=== PATIENT | female | born 1940 | race Caucasian/White ===

== ENCOUNTER → 2017-10-29 10:52 | Outpatient (CLI) | payer OTHER, SELFPAY ==
--- NOTE | 2017-10-29 | DI.MG.S_ITS ---
BILATERAL DIGITAL SCREENING MAMMOGRAM 3D/2D WITH CAD: 10/29/2017 CLINICAL: Routine screening. Family history of breast cancer. Comparison is made to exams dated: 10/19/2016 mammogram, 09/06/2015 mammogram, and 09/03/2014 mammogram - [facility]. There are scattered fibroglandular elements in both breasts. Current study was also evaluated with a Computer Aided Detection (CAD) system. No significant masses, calcifications, or other findings are seen in either breast. There has been no significant interval change. IMPRESSION: NEGATIVE There is no mammographic evidence of malignancy. A 1 year screening mammogram is recommended. This exam was interpreted at Station ID: [id number]. NOTE: For mammograms, a report in lay terms will be sent to the patient. Approximately 15% of breast malignancies will not be visualized mammographically. In the management of a palpable breast mass, a negative mammogram must not discourage biopsy of a clinically suspicious lesion. Electronically Signed By: Liam lai/gabriel:10/29/2017 15:04:16 letter sent: Normal Exam ACR BI-RADS Category 1: Negative 3341F
== END ==
PROVIDERS: Family Provider Physician Assistant; PCP Physician Assistant; Visit Provider Physician Assistant
DX: Z12.31 Encounter for screening mammogram for malignant neoplasm of breast (principal); Z80.3 Family history of malignant neoplasm of breast
CPT/HCPCS: 77063; 77067

== ENCOUNTER → 2017-11-14 19:30 | Outpatient (REF) | payer OTHER, SELFPAY | LOC: LAB 19:30 | PROVIDERS: Family Provider Physician Assistant; PCP Physician Assistant; Visit Provider Physician Assistant | DX: T81.89XA Other complications of procedures, not elsewhere classified, initial encounter (principal) | CPT/HCPCS: 87070; 87075; 87077; 87147; 87186; 87205 ==

== ENCOUNTER 2018-04-04 06:25 | Day surgery (SDC) | payer OTHER, SELFPAY ==
--- NOTE | 2018-04-04 | PATH_ITS ---
[facility] Accession Number: [id number] . 01 Material submitted: . CECAL POLYP . 02 Diagnosis: Cecal Polyp: Vegetable material. No tissue identified. MRV/04/08/2018 . 02 Electronically signed: . Cooper Valle MD, PhD, Pathologist NPI- [id number] . 01 Gross description: . CECAL POLYP: Received in formalin is 1 fragment(s) of de leon, soft tissue measuring 0.4 x 0.4 x 0.2 cm submitted entirely in 1 cassette(s) /CKI /CKI . 02 Pathologist provided ICD-10: K63.5 . 02 CPT . 999718 Specimen Comment: A duplicate report has been generated due to demographic updates. Performed at: 01 [facility] [address] [id number] MD Richard Lema MD Phone: [phone] Performed at: 02 [facility] [address] [place], [place] [id number] MD Carlene Ramos MD Phone: [phone]
[2018-04-04 07:32] VITALS: BP 122/80; PULSE 64; RESP 15; TEMP 36.6; O2SAT 96; BMI 29.8
--- NOTE | 2018-04-04 08:45 | PM.HP.1 ---
History of Present Illness Date Patient Seen: 04/04/18 Chief complaint: [id number] Narrative: 77 y/o female here for colon cancer screening colonoscopy. last colonoscopy 5 years ago, benign polyp removed. no complaints of abdominal pain, bloating, chronic conspitation, change in caliber of stools, melena, blood per rectum. Patient History Family & Social History Family History: Reviewed 04/04/18 by Goldy Martins MD Social History: household members spouse Meds Home Medications Medication Instructions Recorded Confirmed Type ASPIRIN (Aspir-Low) 81 mg PO QDAY #0 12/20/11 History benazepril 10 mg PO QDAY #0 12/20/11 History celecoxib [Celebrex] 200 mg PO QDAY #0 12/20/11 History levothyroxine [Synthroid] 25 mcg PO QAM #0 12/20/11 History loratadine [Claritin] 10 mg PO PRN #0 12/20/11 History VITAMIN D (Vitamin D3) 4,000 PO QDAY #0 11/29/16 History fexofenadine [Gabrielle Allergy] 180 mg PO Q24H 04/04/18 04/04/18 History Allergies Allergy/AdvReac Type Severity Reaction Status Date / Time iodine Allergy Intermediate HIVES Unverified 09/05/17 11:54 CONTRAST DYE latex Allergy Mild RASH Unverified 09/05/17 11:54 codeine AdvReac Mild N/V Unverified 09/05/17 11:54 Review of Systems Review of Systems All systems reviewed & are unremarkable except as noted in HPI and below Exam Vital Signs (past 8 hours): - 04/04/18 07:32 Temperature 98 F Pulse Rate 64 Respiratory Rate 15 Blood Pressure 122/80 Pulse Oximetry 96 Oxygen Delivery Method Room Air Const General: cooperative, healthy appearing and comfortable [facility] Head: normal to inspection, normocephalic and atraumatic Eyes Sclera: sclerae normal Neck Neck: supple Chest Chest: normal inspection of the chest Resp Effort & Inspection: normal respiratory effort Cardio Rhythm: regular rhythm GI Inspection: normal to inspection Palpation: soft Skin General: no rashes or lesions noted Neuro General: alert, awake and moves all extremities Extrem General: normal to inspection Psych Appearance: grossly normal and well kempt Mood: congruent mood Affect: normal affect Attitude: cooperative Thought Process: normal Thought Content: normal Judgment: judgment good Assessment & Plan Plan: Assessment/Plan Narrative: Colon cancer screening colonoscopy. hx of polyp. procedure, benefits, risks including bleeding and perforation reviewed with patient. Time Spent With Patient Time with patient: 25 - 35 minutes
--- NOTE | 2018-04-04 08:49 | P.HP_ITS ---
History of Present Illness Date Patient Seen: 04/04/18 Chief complaint: [id number] Narrative: 77 y/o female here for colon cancer screening colonoscopy. last colonoscopy 5 years ago, benign polyp removed. no complaints of abdominal pain , bloating, chronic conspitation, change in caliber of stools, melena, blood per rectum. Patient History Family & Social History Family History: Reviewed 04/04/18 by Goldy Martins MD Social History: household members spouse Meds Home Medications Medication Instructions Recorded Confirmed Type ASPIRIN (Aspir-Low) 81 mg PO QDAY #0 12/20/11 History benazepril 10 mg PO QDAY #0 12/20/11 History celecoxib [Celebrex] 200 mg PO QDAY #0 12/20/11 History levothyroxine [Synthroid] 25 mcg PO QAM #0 12/20/11 History loratadine [Claritin] 10 mg PO PRN #0 12/20/11 History VITAMIN D (Vitamin D3) 4,000 PO QDAY #0 11/29/16 History fexofenadine [Gabrielle Allergy] 180 mg PO Q24H 04/04/18 04/04/18 History Allergies Allergy/AdvReac Type Severity Reaction Status Date / Time iodine Allergy Intermediate HIVES Unverified 09/05/17 11:54 CONTRAST DYE latex Allergy Mild RASH Unverified 09/05/17 11:54 codeine AdvReac Mild N/V Unverified 09/05/17 11:54 Review of Systems Review of Systems All systems reviewed & are unremarkable except as noted in HPI and below Exam Vital Signs (past 8 hours): - 04/04/18 07:32 Temperature 98 F Pulse Rate 64 Respiratory Rate 15 Blood Pressure 122/80 Pulse Oximetry 96 Oxygen Delivery Method Room Air Const General: cooperative, healthy appearing and comfortable [facility] Head: normal to inspection, normocephalic and atraumatic Eyes Sclera: sclerae normal Neck Neck: supple Chest Chest: normal inspection of the chest Resp Effort & Inspection: normal respiratory effort Cardio Rhythm: regular rhythm GI Inspection: normal to inspection Palpation: soft Skin General: no rashes or lesions noted Neuro General: alert, awake and moves all extremities Extrem General: normal to inspection Psych Appearance: grossly normal and well kempt Mood: congruent mood Affect: normal affect Attitude: cooperative Thought Process: normal Thought Content: normal Judgment: judgment good Assessment & Plan Plan: Assessment/Plan Narrative: Colon cancer screening colonoscopy. hx of polyp. procedure, benefits, risks including bleeding and perforation reviewed with patient. Time Spent With Patient Time with patient: 25 - 35 minutes
[2018-04-04] MEDS: diphenhydrAMINE 50 MG/ML VIAL IV (09:07)
[2018-04-04] MEDS: SODIUM CHLORIDE 0.9% 1,000 ML 1000 ML IV (09:52)
[2018-04-04] MEDS: MIDAZOLAM 5 MG/5 ML VIAL IV (09:54)
[2018-04-04] MEDS: fentaNYL 250 MCG/5 ML INJ IV (09:55)
--- NOTE | 2018-04-04 10:07 | PM.OP.ENDO ---
Operative Date/Time/Diagnoses Date of procedure: 04/04/18 Pre-op diagnosis: colon cancer screening history of colon polyps Post-op diagnosis: same Procedure & Clinicians Indications: Interval colon cancer screening Surgeon: Goldy Martins Procedure Notes SCOAP/Timeout: done Procedure in detail: Patient taken from preoperative area to endoscopy suite with adequate iv access on guerny. Timeout was performed. IV sedation sedation was titrated throughout the case while patient was continuously monitored. Inspection of anal orifice revealed few scattered skin tags. Digital exam failed to palpate any lesions. A well lubricated Fuji colonoscope was gently introduced through the anus and advanced to the cecum using the dither-torque technique. The colon was very tortuous throughout the majority of its length, requiring incremental increased sedation and repositioning of patient as well as external splinting by pediatric medical assistant. Confirmation of reaching the cecum was acheived by identifying the appendiceal orifice and ileocecal valve. A raised polyp was identified at the appendiceal orifice. It was removed using snare technique with application of cautery. Polyp was removed with suction, but not found in trap despite several flushings. The right colon was inspected several times and the removed polyp could not be found. Scattered few diverticuli of the sigmoid colon were identified. Retroflexion of the endoscope in lower third of rectum revealed grade 2 non-bleeding internal hemorrhoids. Residual insufflation was evacuated. Patient tolerated procedure well and was transferred to PACU in stable condition. Scope withdrawal time: 29 Sedation minutes: 60 Findings: diverticulosis (scattered few in sigmoid colon) and internal hemorrhoids (grade 2) Specimen(s): none sent (cecal polyp) Complications: none Recommendations: Colonscopy in 3 years Disposition: same day surgery
[2018-04-04 10:11] VITALS: BP 118/78; PULSE 83; RESP 15; TEMP 36.6; O2SAT 94
[2018-04-04] MEDS: CALCIUM CARBONATE 500 MG TAB 1000 MG PO (10:50)
[2018-04-04 11:25] VITALS: BP 122/86; PULSE 72; RESP 16; TEMP 36.6; O2SAT 99
== END 2018-04-04 11:33 | disposition home or self-care (01) ==
PROVIDERS: Family Provider Physician Assistant; PCP Physician Assistant; Visit Provider Surgery
PROC: 0DJD8ZZ Inspection of Lower Intestinal Tract, Via Natural or Artificial Opening Endoscopic (ICD-10-PCS; CPT 45378; principal; 2018-04-04 07:45)
DX: Z86.010 Personal history of colon polyps (principal); K57.30 Diverticulosis of large intestine without perforation or abscess without bleeding; K64.1 Second degree hemorrhoids; K63.5 Polyp of colon
CPT/HCPCS: 45385; J1200; J2250; J3010

== ENCOUNTER → 2018-08-26 10:56 | Outpatient (CLI) | payer OTHER, SELFPAY ==
--- NOTE | 2018-08-26 10:59 | DI.US.S_ITS ---
PROCEDURE: US EXTREMITY NONVASC UPPER LT INDICATIONS: LOCALIZED SWELLING TECHNIQUE: Real-time scanning was performed of the left upper arm, with image documentation. COMPARISON: None. FINDINGS: Multiple whyte scale and color Doppler images of the left upper arm were acquired over the patient directed area of palpable concern. Within the superficial subcutaneous soft tissues, there is an isoechoic-hyperechoic circumscribed mass that is wider than tall and subdermal in location. It measures 2.7 x 0.8 x 2.2 cm in size no internal vascularity. No evidence for invasion into the underlying fascia of the upper arm musculature. IMPRESSION: Circumscribed, wider than tall isoechoic-hyperechoic containing soft tissue mass in the left upper arm correlating with palpable area of patient concern. 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 However, tissue sampling is required for definitive diagnosis. If there is persistent pain or enlargement in size, consider further characterization with contrast-enhanced MRI. Dictated by: Carlos A Shore M.D. on 08/26/2018 at 16:01 Approved by: Carlos A Shore M.D. on 08/26/2018 at 16:05
[2018-08-26 12:08] LABS: Add Manual Diff / Slide Review NO; Basophils Absolute Auto 100 /uL (0-100); Basophils Percent Auto 0.7 % (0-2); Eosinophils Absolute Auto 100 /uL (0-450); Eosinophils Percent Auto 1.2 % (2-4); Hematocrit 43.3 % (36-46); Hemoglobin 14.1 g/dL (12.0-16.0); Lymphocytes Absolute Auto 1800 /uL (1100-4500); Lymphocytes Percent Auto 20.9 % (25-40); Mean Corpuscular HGB Conc 32.6 % (30-36); Mean Corpuscular Hemoglobin 30.8 PG (26-34); Mean Corpuscular Volume 94.5 fL (80-100); Monocytes Absolute Auto 400 /uL (0-900); Monocytes Percent Auto 5.1 % (3-14); Neutrophils Absolute Auto 6400 /uL (1500-7000); Neutrophils Percent Auto 72.1 % (50-75); Platelet Count 342 X10^3/uL (150-400); Red Blood Cell Count 4.59 X10^6/uL (4.0-5.2); Red Cell Distribution Width 13.7 % (11.6-14.8); White Blood Cell Count 8.8 X10^3/uL (4.5-11.0)
[2018-08-26 12:39] LABS: Alanine Aminotransferase 40 IU/L (9-52); Albumin 4.6 g/dL (3.5-5.0); Albumin Globulin Ratio 1.7 (1.0-2.8); Alkaline Phosphatase 85 U/L (38-126); Aspartate Aminotransferase 49 IU/L (14-36); Bilirubin Total 0.5 mg/dL (0.2-1.3); Blood Urea Nitrogen 28 mg/dL (7-17); Calcium 9.7 mg/dL (8.4-10.2); Carbon Dioxide 28 mmol/L (22-32); Chloride 100 mmol/L (98-107); Cholesterol 194 mg/dL (140-199); Estimated Glomerular Filt Rate > 60.0 mL/min (>60); Globulin 2.7 g/dL (1.7-4.1); Glucose 82 mg/dL (80-110); HDL Cholesterol 68 mg/dL (40-60); HEMOLYSIS 18 (0-50); LDL Cholesterol Calculated 108 mg/dL (<100); Potassium 4.8 mmol/L (3.4-5.1); Sodium 137 mmol/L (137-145); Total Protein 7.3 g/dL (6.3-8.2); Triglycerides 92 mg/dL (35-150)
== END ==
PROVIDERS: Family Provider Physician Assistant; PCP Physician Assistant; Visit Provider Physician Assistant
DX: R22.32 Localized swelling, mass and lump, left upper limb (principal); C69.32 Malignant neoplasm of left choroid; E78.2 Mixed hyperlipidemia
CPT/HCPCS: 36415; 76882; 80053; 80061; 85025

== ENCOUNTER → 2018-09-05 10:22 | Outpatient (CLI) | payer OTHER, SELFPAY ==
--- NOTE | 2018-09-05 10:29 | DI.CT.S_ITS ---
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 5 mm coronal and sagittal reformats were performed, with additional 7 mm coronal MIP reformats through the lungs. For radiation dose reduction, the following was used: automated exposure control, adjustment of mA and/or kV according to patient size. COMPARISON: None. FINDINGS: Image quality: Excellent. CHEST: Lungs and pleura: No acute airspace opacities. No pleural effusions or pneumothorax. Central and peripheral airways appear patent and normal in caliber. Mediastinum: Heart size is normal. No pericardial effusion. No mediastinal or hilar adenopathy by size criteria. Small calcified lymph node in the precarinal space is seen. Thoracic aorta and central pulmonary arteries are normal in size. Esophagus is normal in caliber. No hiatal hernia. Chest wall: No axillary or supraclavicular adenopathy by size criteria. Thyroid gland is within normal limits. ABDOMEN: Solid organs: Liver is normal in size and enhancement. Calcified stones are noted in dependent portion of gallbladder lumen. No gross gallbladder wall thickening or pericholecystic fluid. There is mild left intrahepatic biliary ductal dilatation. Common bile duct is normal in size. Pancreas enhances normally. Spleen is normal in size and enhancement. No adrenal nodules. Numerous cysts are seen scattered throughout bilateral renal parenchyma. No renal stones or hydronephrosis. Peritoneum and bowel: Bowel loops demonstrate normal wall thickness and caliber. No free fluid or air. Nodes and vessels: No retroperitoneal or mesenteric adenopathy by size criteria. Subcentimeter lymph nodes are seen in the left para-aortic space measures up to 7 mm in short axis diameter. Aorta and inferior vena cava are normal in size. Miscellaneous: No ventral hernias. PELVIS: Genitourinary: Bladder wall thickness is normal. Miscellaneous: No inguinal adenopathy. Left inguinal hernia containing fat only is noted. Benign-appearing sclerotic focus involving anterior aspect of L1 vertebral body is seen, and may represent focal bone island. Grade 1 anterolisthesis of L5 on S1 is noted. Bones: No suspicious bony lesions. No vertebral body compression fractures. IMPRESSION: 1. No evidence of metastatic disease in chest, abdomen or pelvis. No lymphadenopathy. 2. Cholelithiasis. Mild left intrahepatic biliary ductal dilatation. Normal appearing common hepatic duct and common bile duct. No CT evidence of acute cholecystitis. 3. Calcified lymph node in the precarinal space. Small calcified granuloma in the spleen. Findings likely represent prior granulomatous disease. Dictated by: Jones Toledo M.D. on 09/05/2018 at 12:37 Approved by: Jones Toledo M.D. on 09/05/2018 at 12:56
== END ==
PROVIDERS: Family Provider Physician Assistant; PCP Physician Assistant; Visit Provider Physician Assistant
DX: C69.32 Malignant neoplasm of left choroid (principal); K80.20 Calculus of gallbladder without cholecystitis without obstruction; K40.90 Unilateral inguinal hernia, without obstruction or gangrene, not specified as recurrent; M43.17 Spondylolisthesis, lumbosacral region
CPT/HCPCS: 71260; 74177; Q9967

== ENCOUNTER → 2018-09-23 10:22 | Outpatient (CLI) | payer OTHER, SELFPAY ==
--- NOTE | 2018-09-23 | DI.US.S_ITS ---
PROCEDURE: US PERIPH VENOUS LOW EXTREM LT INDICATIONS: PALPABLE 'CORD' LEFT UPPER MEDIAL CALF TECHNIQUE: Real-time imaging, as well as color and pulse Doppler interrogation, were performed of the lower extremity deep veins from the inguinal ligament to the popliteal fossa. COMPARISON: None. FINDINGS: The common femoral, femoral and popliteal veins are normally compressible, and free of intraluminal thrombus. Color and pulse Doppler demonstrate normal phasic intraluminal flow. There is normal augmentation response to distal compression maneuver. There is, however, a thrombosed superficial vein over the left upper medial calf in the area of current palpable abnormality in the superficial soft tissues. IMPRESSION: No DVT found that there is a superficial vein (presumed varicosity) thrombus at the upper medial calf in the area of current clinical concern. Dictated by: Rory Patiño M.D. on 09/23/2018 at 11:16 Approved by: Rory Patiño M.D. on 09/23/2018 at 11:17
== END ==
PROVIDERS: Family Provider Physician Assistant; PCP Physician Assistant; Visit Provider Student in an Organized Health Care Education/Training Program
DX: M79.662 Pain in left lower leg (principal)
CPT/HCPCS: 93971

== ENCOUNTER → 2018-11-20 09:08 | Outpatient (CLI) | payer OTHER, SELFPAY ==
--- NOTE | 2018-11-20 | DI.MG.S_ITS ---
BILATERAL DIGITAL SCREENING MAMMOGRAM 3D/2D WITH CAD: 11/20/2018 CLINICAL: Routine screening. Family history of breast cancer. Comparison is made to exams dated: 10/29/2017 mammogram, 10/19/2016 mammogram, and 09/06/2015 mammogram - [facility]. There are scattered fibroglandular elements in both breasts. Current study was also evaluated with a Computer Aided Detection (CAD) system. There are benign post operative findings in the left breast. No significant masses, calcifications, or other findings are seen in either breast. There has been no significant interval change. IMPRESSION: There is no mammographic evidence of malignancy. A 1 year screening mammogram is recommended. This exam was interpreted at Station ID: [id number]. NOTE: For mammograms, a report in lay terms will be sent to the patient. Approximately 15% of breast malignancies will not be visualized mammographically. In the management of a palpable breast mass, a negative mammogram must not discourage biopsy of a clinically suspicious lesion. Electronically Signed By: Autumn roche/gabriel:11/20/2018 15:23:10 letter sent: Normal Exam ACR BI-RADS Category 2: Benign Finding(s) 3342F
== END ==
PROVIDERS: Family Provider Physician Assistant; PCP Physician Assistant; Visit Provider Physician Assistant
DX: Z12.31 Encounter for screening mammogram for malignant neoplasm of breast (principal); Z80.3 Family history of malignant neoplasm of breast
CPT/HCPCS: 77063; 77067

== ENCOUNTER → 2019-07-31 14:23 | Outpatient (ROUT) | payer OTHER, SELFPAY ==
[2019-07-31 14:48] LABS: Add Manual Diff / Slide Review NO; Basophils Absolute Auto 100 /uL (0-100); Basophils Percent Auto 1.2 % (0-2); Eosinophils Absolute Auto 100 /uL (0-450); Eosinophils Percent Auto 2.4 % (2-4); Hematocrit 40.5 % (36-46); Hemoglobin 13.7 g/dL (12.0-16.0); Lymphocytes Absolute Auto 1500 /uL (1100-4500); Lymphocytes Percent Auto 25.9 % (25-40); Mean Corpuscular HGB Conc 33.7 % (30-36); Mean Corpuscular Hemoglobin 31.2 PG (26-34); Mean Corpuscular Volume 92.7 fL (80-100); Monocytes Absolute Auto 400 /uL (0-900); Monocytes Percent Auto 7.2 % (3-14); Neutrophils Absolute Auto 3600 /uL (1500-7000); Neutrophils Percent Auto 63.3 % (50-75); Platelet Count 364 X10^3/uL (150-400); Red Blood Cell Count 4.37 X10^6/uL (4.0-5.2); Red Cell Distribution Width 14.5 % (11.6-14.8); White Blood Cell Count 5.7 X10^3/uL (4.5-11.0)
[2019-07-31 16:20] LABS: Alanine Aminotransferase 27 IU/L (<35); Albumin 4.5 g/dL (3.5-5.0); Albumin Globulin Ratio 1.8 (1.0-2.8); Alkaline Phosphatase 79 U/L (38-126); Aspartate Aminotransferase 41 IU/L (14-36); BUN Creatinine Ratio 31.4 (6-22); Bilirubin Total 0.5 mg/dL (0.2-1.3); Blood Urea Nitrogen 22 mg/dL (7-17); Calcium 9.8 mg/dL (8.4-10.2); Carbon Dioxide 27 mmol/L (22-32); Chloride 104 mmol/L (98-107); Cholesterol 191 mg/dL (140-199); Estimated Glomerular Filt Rate > 60.0 mL/min (>60); Globulin 2.5 g/dL (1.7-4.1); Glucose 87 mg/dL (80-110); HDL Cholesterol 66 mg/dL (40-60); HEMOLYSIS 23 (0-50); LDL Cholesterol Calculated 114 mg/dL (<100); Potassium 4.9 mmol/L (3.4-5.1); Sodium 140 mmol/L (137-145); Triglycerides 56 mg/dL (35-150)
[2019-07-31 16:42] LABS: TSH w/ Reflex to FT4 3.43 uIU/mL (0.47-4.68)
== END ==
PROVIDERS: Family Provider Physician Assistant; PCP Physician Assistant; Visit Provider Physician Assistant
DX: E03.9 Hypothyroidism, unspecified (principal); I10 Essential (primary) hypertension; E78.2 Mixed hyperlipidemia
CPT/HCPCS: 80053; 80061; 84443; 85025

== ENCOUNTER → 2019-11-26 08:16 | Outpatient (CLI) | payer OTHER, SELFPAY ==
--- NOTE | 2019-11-26 | DI.MG.S_ITS ---
BILATERAL DIGITAL SCREENING MAMMOGRAM 3D/2D WITH CAD: 11/26/2019 CLINICAL: Routine screening. Family history of breast cancer. Comparison is made to exams dated: 11/20/2018 mammogram, 10/29/2017 mammogram, and 10/19/2016 mammogram - [facility]. There are scattered fibroglandular elements in both breasts. Current study was also evaluated with a Computer Aided Detection (CAD) system. There are benign post operative findings in the left breast. No significant masses, calcifications, or other findings are seen in either breast. There has been no significant interval change. IMPRESSION: There is no mammographic evidence of malignancy. A 1 year screening mammogram is recommended. This exam was interpreted at Station ID: [id number]. NOTE: For mammograms, a report in lay terms will be sent to the patient. Approximately 15% of breast malignancies will not be visualized mammographically. In the management of a palpable breast mass, a negative mammogram must not discourage biopsy of a clinically suspicious lesion. Electronically Signed By: Richard milton/gabriel:11/26/2019 08:47:15 letter sent: Normal Exam ACR BI-RADS Category 2: Benign Finding(s) 3342F
== END ==
PROVIDERS: Family Provider Physician Assistant; PCP Physician Assistant; Referring Provider Physician Assistant; Visit Provider Physician Assistant
DX: Z12.31 Encounter for screening mammogram for malignant neoplasm of breast (principal); Z80.3 Family history of malignant neoplasm of breast
CPT/HCPCS: 77063; 77067

== ENCOUNTER → 2020-11-26 10:07 | Outpatient (CLI) | payer MEDICARE, SELFPAY ==
--- NOTE | 2020-11-26 | DI.MG.S_ITS ---
BILATERAL DIGITAL SCREENING MAMMOGRAM 3D/2D WITH CAD: 11/26/2020 CLINICAL: Routine screening. Family history of breast cancer. Comparison is made to exams dated: 11/26/2019 mammogram, 11/20/2018 mammogram, and 10/29/2017 mammogram - [facility]. There are scattered fibroglandular elements in both breasts. Current study was also evaluated with a Computer Aided Detection (CAD) system. There are benign calcifications in both breasts. There also are benign post operative findings in the left breast. No significant masses, calcifications, or other findings are seen in either breast. There has been no significant interval change. IMPRESSION: BENIGN There is no mammographic evidence of malignancy. A 1 year screening mammogram is recommended. This exam was interpreted at Station ID: [id number]. NOTE: For mammograms, a report in lay terms will be sent to the patient. Approximately 15% of breast malignancies will not be visualized mammographically. In the management of a palpable breast mass, a negative mammogram must not discourage biopsy of a clinically suspicious lesion. Electronically Signed By: Richard milton/gabriel:11/26/2020 10:41:57 letter sent: Normal Exam ACR BI-RADS Category 2: Benign Finding(s) 3342F
== END ==
PROVIDERS: Family Provider Physician Assistant; PCP Physician Assistant; Referring Provider Physician Assistant; Visit Provider Physician Assistant
DX: Z12.31 Encounter for screening mammogram for malignant neoplasm of breast (principal); Z80.3 Family history of malignant neoplasm of breast
CPT/HCPCS: 77063; 77067

== ENCOUNTER → 2021-01-19 09:04 | Outpatient (CLI) | payer MEDICARE, SELFPAY ==
[2021-01-19 09:36] LABS: Add Manual Diff / Slide Review NO; Basophils Absolute Auto 100 /uL (0-100); Eosinophils Absolute Auto 200 /uL (0-450); Hematocrit 41.6 % (36-46); Hemoglobin 13.6 g/dL (12.0-16.0); Lymphocytes Absolute Auto 1400 /uL (1100-4500); Lymphocytes Percent Auto 24.1 % (25-40); Mean Corpuscular HGB Conc 32.6 % (30-36); Mean Corpuscular Hemoglobin 30.8 PG (26-34); Mean Corpuscular Volume 94.6 fL (80-100); Monocytes Absolute Auto 500 /uL (0-900); Monocytes Percent Auto 7.6 % (3-14); Neutrophils Absolute Auto 3800 /uL (1500-7000); Neutrophils Percent Auto 63.3 % (50-75); Platelet Count 410 X10^3/uL (150-400); Red Cell Distribution Width 14.3 % (11.6-14.8)
[2021-01-19 10:02] LABS: Alanine Aminotransferase 27 IU/L (<35); Albumin 4.2 g/dL (3.5-5.0); Albumin Globulin Ratio 1.8 (1.0-2.8); Alkaline Phosphatase 77 U/L (38-126); Aspartate Aminotransferase 36 IU/L (14-36); BUN Creatinine Ratio 30.1 (6-22); Bilirubin Total 0.4 mg/dL (0.2-1.3); Blood Urea Nitrogen 22 mg/dL (7-17); Calcium 9.7 mg/dL (8.4-10.2); Carbon Dioxide 29 mmol/L (22-32); Chloride 104 mmol/L (98-107); Cholesterol 195 mg/dL (140-199); Estimated Glomerular Filt Rate > 60.0 mL/min (>60); Globulin 2.4 g/dL (1.7-4.1); Glucose 58 mg/dL (80-110); HDL Cholesterol 76 mg/dL (40-60); HEMOLYSIS < 15 (0-50); LDL Cholesterol Calculated 102 mg/dL (<100); Potassium 4.5 mmol/L (3.4-5.1); Sodium 137 mmol/L (137-145); Total Protein 6.6 g/dL (6.3-8.2); Triglycerides 87 mg/dL (35-150)
[2021-01-19 10:26] LABS: TSH w/ Reflex to FT4 4.06 uIU/mL (0.47-4.68)
== END ==
PROVIDERS: Family Provider Physician Assistant; PCP Physician Assistant; Referring Provider Physician Assistant; Visit Provider Physician Assistant
DX: I10 Essential (primary) hypertension (principal); E03.9 Hypothyroidism, unspecified; E78.2 Mixed hyperlipidemia
CPT/HCPCS: 36415; 80053; 80061; 84443; 85025

== ENCOUNTER → 2021-03-02 14:16 | Outpatient (CLI) | payer MEDICARE, SELFPAY ==
--- NOTE | 2021-03-02 | DI.RAD.S_ITS ---
PROCEDURE: XR DEXA AXIAL SKELETON INDICATIONS: Encounter for screening for osteoporosis COMPARISON: None. FINDINGS: This blank DEXA report has been sent in error by the PACS system. The correct and complete report will be forthcoming in 1-2 days. Thank you for your patience and understanding. Dictated by: Ally Mead MD, PhD on 03/03/2021 at 10:04 Approved by: Ally Mead MD, PhD on 03/03/2021 at 10:04
== END ==
PROVIDERS: Family Provider Physician Assistant; PCP Physician Assistant; Referring Provider Physician Assistant; Visit Provider Physician Assistant
DX: Z13.820 Encounter for screening for osteoporosis (principal); M81.0 Age-related osteoporosis without current pathological fracture; M85.852 Other specified disorders of bone density and structure, left thigh
CPT/HCPCS: 77080

== ENCOUNTER → 2021-05-10 12:14 | Outpatient (CLI) | payer MEDICARE, SELFPAY ==
--- NOTE | 2021-05-10 12:17 | DI.US.S_ITS ---
PROCEDURE: US PERIPH VENOUS LOW EXTREM RT INDICATIONS: R calf pain x1 day, hx Factor 5 and superficial thrombus TECHNIQUE: Real-time imaging, as well as color and pulse Doppler interrogation, were performed of the lower extremity deep veins from the inguinal ligament to the popliteal fossa. COMPARISON: None. FINDINGS: There is incompressibility of the distal femoral vein and the popliteal vein, with intermediate echogenicity on grayscale images and lack of color flow, consistent with occlusive thrombus. Findings extend into the right calf veins. The common femoral and proximal femoral veins are normally compressible, and free of intraluminal thrombus. IMPRESSION: Occlusive deep venous thrombus within the distal femoral vein, the popliteal vein, and the calf veins. Concordant preliminary findings were conveyed to the ordering provider, Jolene Carvajal PA-C, by the insurance office manager on 05/10/2021 at 1:00 PM. Dictated by: Cirilo Melton M.D. on 05/10/2021 at 13:35 Approved by: Cirilo Melton M.D. on 05/10/2021 at 13:37
== END ==
PROVIDERS: Family Provider Physician Assistant; PCP Physician Assistant; Referring Provider Physician Assistant; Visit Provider Physician Assistant
DX: I82.411 Acute embolism and thrombosis of right femoral vein (principal); I82.431 Acute embolism and thrombosis of right popliteal vein; I82.4Z1 Acute embolism and thrombosis of unspecified deep veins of right distal lower extremity; M79.661 Pain in right lower leg; D68.51 Activated protein C resistance
CPT/HCPCS: 93971

== ENCOUNTER → 2021-12-13 08:31 | Outpatient (CLI) | payer MEDICARE, SELFPAY ==
--- NOTE | 2021-12-13 | DI.MG.S_ITS ---
BILATERAL DIGITAL SCREENING MAMMOGRAM 3D/2D WITH CAD: 12/13/2021 CLINICAL: Routine screening. Family history of breast cancer. Comparison is made to exams dated: 11/26/2020 mammogram, 11/26/2019 mammogram, 11/20/2018 mammogram, 10/29/2017 mammogram, and 10/19/2016 mammogram - [facility]. There are scattered fibroglandular elements in both breasts. Current study was also evaluated with a Computer Aided Detection (CAD) system. There are benign calcifications in both breasts. There also are benign post operative findings in the left breast. No significant masses, calcifications, or other findings are seen in either breast. There has been no significant interval change. IMPRESSION: BENIGN There is no mammographic evidence of malignancy. A 1 year screening mammogram is recommended. Based on the Tyrer Cuzick model (a risk assessment model) the patient's lifetime risk is 3.5% and her 10 year risk is 0.0%. According to the ACR, ACS, and NCCN guidelines, an annual breast MRI exam along with mammogram is recommended if the patient's lifetime risk is 20% or greater. This exam was interpreted at Station ID: [id number]. NOTE: For mammograms, a report in lay terms will be sent to the patient. Approximately 15% of breast malignancies will not be visualized mammographically. In the management of a palpable breast mass, a negative mammogram must not discourage biopsy of a clinically suspicious lesion. Electronically Signed By: Jerod aldridge/gabriel:12/13/2021 12:38:12 letter sent: Normal Exam ACR BI-RADS Category 2: Benign Finding(s) 3342F
== END ==
PROVIDERS: Family Provider Physician Assistant; PCP Physician Assistant; Referring Provider Physician Assistant; Visit Provider Physician Assistant
DX: Z12.31 Encounter for screening mammogram for malignant neoplasm of breast (principal); Z80.3 Family history of malignant neoplasm of breast
CPT/HCPCS: 77063; 77067

== ENCOUNTER → 2022-05-10 13:41 | Outpatient (CLI) | payer MEDICARE, SELFPAY ==
[2022-05-10 15:39] LABS: Add Manual Diff / Slide Review NO; Basophils Absolute Auto 100 /uL (0-100); Basophils Percent Auto 0.8 % (0-2); Eosinophils Absolute Auto 100 /uL (0-450); Eosinophils Percent Auto 1.9 % (2-4); Hematocrit 41.7 % (36-46); Hemoglobin 13.8 g/dL (12.0-16.0); Lymphocytes Absolute Auto 1600 /uL (1100-4500); Lymphocytes Percent Auto 21.8 % (25-40); Mean Corpuscular HGB Conc 33.2 % (30-36); Mean Corpuscular Hemoglobin 31.1 PG (26-34); Mean Corpuscular Volume 93.7 fL (80-100); Monocytes Absolute Auto 400 /uL (0-900); Monocytes Percent Auto 5.4 % (3-14); Neutrophils Absolute Auto 5200 /uL (1500-7000); Neutrophils Percent Auto 70.1 % (50-75); Platelet Count 468 X10^3/uL (150-400); Red Blood Cell Count 4.45 X10^6/uL (4.0-5.2); Red Cell Distribution Width 14.3 % (11.6-14.8); White Blood Cell Count 7.5 X10^3/uL (4.5-11.0)
[2022-05-10 15:44] LABS: INR 1.2 (0.9-1.3); Prothrombin Time 13.2 SECONDS (10.1-12.7)
[2022-05-10 15:46] LABS: PTT Partial Thromboplastin Tim 36 SECONDS (26-36)
[2022-05-10 16:09] LABS: Alanine Aminotransferase 46 IU/L (<35); Albumin 4.6 g/dL (3.5-5.0); Albumin Globulin Ratio 1.5 (1.0-2.8); Alkaline Phosphatase 99 U/L (38-126); Aspartate Aminotransferase 47 IU/L (14-36); BUN Creatinine Ratio 33.8 (6-22); Bilirubin Total 0.4 mg/dL (0.2-1.3); Blood Urea Nitrogen 26 mg/dL (7-17); Calcium 9.3 mg/dL (8.4-10.2); Carbon Dioxide 28 mmol/L (22-32); Chloride 98 mmol/L (98-107); Estimated Glomerular Filt Rate > 60 mL/min (>60); Glucose 88 mg/dL (80-110); HEMOLYSIS < 15 (0-50); Potassium 4.6 mmol/L (3.4-5.1); Sodium 135 mmol/L (137-145); Total Protein 7.6 g/dL (6.3-8.2)
== END ==
PROVIDERS: Family Provider Physician Assistant; PCP Physician Assistant; Referring Provider Nurse Practitioner Adult Health; Visit Provider Nurse Practitioner Adult Health
DX: C69.30 Malignant neoplasm of unspecified choroid (principal)
CPT/HCPCS: 36415; 80053; 85025; 85610; 85730

== ENCOUNTER → 2023-04-10 08:55 | Outpatient (CLI) | payer MEDICARE, SELFPAY ==
[2023-04-10 10:16] LABS: Influenza A - CEPHEID Flu A NEGATIVE (NEGATIVE); Influenza B - CEPHEID Flu B NEGATIVE (NEGATIVE); Respiratory Syncytial Virus Negative (Negative)
[2023-04-10 10:22] LABS: COVID-19 CEPHEID 4-PLEX PCR Negative (Negative)
== END ==
PROVIDERS: Family Provider Physician Assistant; PCP Physician Assistant; Visit Provider Physician Assistant
DX: R05.1 Acute cough (principal)
CPT/HCPCS: 0241U

== ENCOUNTER 2023-08-10 11:43 | Emergency (ER) | payer MEDICARE, SELFPAY ==
[2023-08-10 11:46] VITALS: BP 143/81; PULSE 83; RESP 16; TEMP 36.2; O2SAT 96; BMI 28.7
--- NOTE | 2023-08-10 11:57 | ED.CHESTPAIN ---
HPI - Chest Pain <Jitendra Nelson PA-C - Last Filed: 08/10/23 12:46> General Chief Complaint: Chest Pain Stated Complaint: sent by Onc, severe pain in shoulder upper arm bk Time Seen by Provider: 08/10/23 11:57 Source: patient Mode of arrival: Ambulatory Limitations: no limitations History of Present Illness HPI narrative: This is a 82-year-old female presents emergency department due to an episode of right shoulder pain radiating down her right upper extremity with a brief episode of numbness. She denies any chest pain, shortness of breath. 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 She was concerned with these new symptoms in his speaking with the oncologist for a more complete workup and scan. She states that she spoke with her oncology office and was told to come to the emergency department for ?just an EKG ?. Repeatedly declining any further workup other than an EKG. Related Data Home Medications Medication Instructions Recorded Confirmed ASPIRIN (Aspir-Low) 81 mg PO QDAY ##0 12/20/11 04/10/23 benazepril 10 mg tablet 10 mg PO QDAY ##0 12/20/11 04/10/23 celecoxib 200 mg capsule (Celebrex) 200 mg PO QDAY ##0 12/20/11 04/10/23 levothyroxine 25 mcg tablet 25 mcg PO QAM ##0 12/20/11 04/10/23 (Synthroid) loratadine 10 mg tablet (Claritin) 10 mg PO PRN ##0 12/20/11 04/10/23 VITAMIN D (Vitamin D3) 4,000 PO QDAY ##0 11/29/16 04/10/23 fexofenadine 180 mg tablet 180 mg PO Q24H 04/04/18 04/10/23 (Gabrielle Allergy) benazepril 20 mg tablet 20 mg PO DAILY 04/10/23 04/10/23 clobetasol 0.05 % lotion topical 04/10/23 04/10/23 escitalopram oxalate 5 mg tablet 5 mg PO DAILY 04/10/23 04/10/23 Previous Rx's Medication Instructions Recorded apixaban 5 mg (74 tabs) tablets in See Rx Instructions PO PER PKG DIR 05/10/21 a dose pack (Eliquis DVT-PE Treat #74 ea 30D Start) Allergies Allergy/AdvReac Type Severity Reaction Status Date / Time iodine Allergy Intermediate HIVES Unverified 04/10/23 08:51 CONTRAST DYE latex Allergy Mild RASH Unverified 04/10/23 08:51 codeine AdvReac Mild N/V Unverified 04/10/23 08:51 Review of Systems <Jitendra Nelson PA-C - Last Filed: 08/10/23 12:46> Review of Systems Narrative: GENERAL: Denies chills, fatigue, malaise, fever, sweats. HEENT: Denies sinus pain, ear pain, sore throat, difficulty swallowing, dizziness. RESPIRATORY: Denies dyspnea, cough, wheezing, hemoptysis, sputum. CARDIOVASCULAR: Denies chest pain, palpitations, orthopnea, edema, GASTROINTESTINAL: Denies nausea, vomiting, abdominal pain, diarrhea, constipation, melena. : Denies dysuria, frequency, incontinence, hematuria, urinary retention. MUSCULOSKELETAL: denies weakness, joint pain, or bony pain currently. Reports an episode of right shoulder pain last night. SKIN: Denies rash, skin lesions, or other NEUROLOGIC: Denies weakness, headache, numbness, change in speech, confusion, seizures, incoordination. PSYCHIATRIC: No concerning psychosocial issues. 12 point review of systems is negative except for those stated above Patient History <Jitendra Nelson PA-C - Last Filed: 08/10/23 12:46> Family History Mother Hypertension Stroke Breast cancer Social History household members: spouse Smoking Status: Former smoker Smoking Status: Former smoker Substance Use Type: does not use Exam <Jitendra Nelson PA-C - Last Filed: 08/10/23 12:46> Narrative Exam Narrative: GENERAL: Well-developed patient, in mild distress. HEAD: Atraumatic. Normocephalic. EYES: Pupils equal round and reactive. Extraocular motions intact. No scleral icterus. No injection or drainage. ENT: Nose without bleeding, purulent drainage. Throat without erythema, tonsillar hypertrophy or exudate. Airway patent. NECK: Trachea midline. Non tender EXTREMITIES: No edema or joint tenderness. NEURO: AOx3. Cranial nerves 2-12 intact. SKIN: No rash or erythema of visible areas CARDIOVASCULAR: Regular rate and rhythm without murmurs, gallops, or rubs. RESPIRATORY: Clear to auscultation. Breath sounds equal bilaterally. No wheezes, rales, or rhonchi. BACK: Nontender without deformity or crepitance. No flank tenderness. Initial Vital Signs Initial Vital Signs: Vital Signs Temperature 97.1 F L 08/10/23 11:46 Pulse Rate 83 08/10/23 11:46 Respiratory Rate 16 08/10/23 11:46 Blood Pressure 143/81 H 08/10/23 11:46 Pulse Oximetry 96 08/10/23 11:46 Oxygen Delivery Method Room Air 08/10/23 11:46 <DO Mary Lou Ramos Last Filed: 08/11/23 07:19> Initial Vital Signs Initial Vital Signs: Vital Signs Temperature 97.1 F L 08/10/23 11:46 Pulse Rate 83 08/10/23 11:46 Respiratory Rate 16 08/10/23 11:46 Blood Pressure 143/81 H 08/10/23 11:46 Pulse Oximetry 96 08/10/23 11:46 Oxygen Delivery Method Room Air 08/10/23 11:46 Course <Jitendra Nelson PA-C - Last Filed: 08/10/23 12:46> Orders Ordered: ED Orders 08/10/23 11:59 EKG-12 Lead Stat Vital Signs Vital signs: Vital Signs - 8 hr 08/10/23 11:46 Temperature 97.1 F L Pulse Rate 83 Respiratory Rate 16 Blood Pressure 143/81 H Pulse Oximetry 96 Oxygen Delivery Method Room Air <DO Mary Lou Ramos Last Filed: 08/11/23 07:19> Orders Ordered: ED Orders 08/10/23 11:59 EKG-12 Lead Stat Vital Signs Vital signs: Vital Signs - 8 hr 08/10/23 11:46 Temperature 97.1 F L Pulse Rate 83 Respiratory Rate 16 Blood Pressure 143/81 H Pulse Oximetry 96 Oxygen Delivery Method Room Air MDM - Chest Pain <CHRISTOPHER Lopez Last Filed: 08/10/23 12:46> ECG Data Interpretation: EKG is normal sinus rhythm rate 80 and free of any signs of ischemia or ectopy. No ST segmental elevation or depression. Right bundle-branch block. MDM Narrative Medical decision making narrative: ED course: This is a 82 year female presenting to the emergency department due to a brief episode of right shoulder pain as well as right arm numbness. This is all resolved and she reports no symptoms currently. Discussed the benefits of a more complete workup with the patient repeatedly declined and states that she would only like an EKG. EKG showed no acute concerns for ACS. Patient is following up with the oncologist later this week for a more complete workup. She had a reassuring neuro exam currently and low concern for any kind of ischemic or hemorrhagic stroke. Possible musculoskeletal in nature regarding the right shoulder pain. Patient is on palliative care. CC: Episode of right shoulder pain Complicating co-morbidities: History of liver cancer Data collected from: Previous notes Medical records reviewed: History of ocular melanoma, with liver metastasis. On palliative care. 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 History of hypothyroidism. Differential considered, but not limited to: Musculoskeletal injury, TIA, ischemic/hemorrhagic stroke, ACS Exam documented above, pertinent findings include: Reassuring neuro exam Lab Test results independently reviewed as above. Pertinent findings: None obtained Imaging studies independently reviewed: None obtained Scores Used: None MIPS Elements: None Consultations: None Treatments: None Re-evaluations: None Discussion: Discussed plan with the patient was comfortable with the plan Diagnosis: Right shoulder pain Disposition: see below, along with detailed discharge instructions that have been reviewed with patient as well as indications for ED re-evaluation and additional outpatient follow up <Katelin Cortez DO - Last Filed: 08/11/23 07:19> ECG Data Interpretation: EKG is normal sinus rhythm rate 80 and free of any signs of ischemia or ectopy. No ST segmental elevation or depression. Right bundle-branch block. Diego-sinus rhythm rate 80 SC interval 216 QRS 6 QTC [address] changes incomplete right bundle-branch block new from last EKG in 2011 Q-waves noted he 3 and AVF along with V1 V2 and V3 these are no pathologic. No ST changes Discharge Plan Departure Patient Disposition: Home Clinical Impression: Acute pain of right shoulder Activity Restrictions/Additional Instructions: Thank you for coming to the [facility] Emergency Department today. Your EKG showed no concerning findings concerning for any kind of ?heart attack?. I do recommend a complete workup but this is able to be done by your oncologist as he was planned. The shoulder pain may have been due to an abnormal positioning for some time which can cause some numbness to go down in the right upper arm. This may also be a possible ?TIA? as we discussed but would recommend you have the complete workup that you have discussed implant. Please return to the emergency department if you develop any slurred speech, facial drooping, no episodes of numbness, chest pain, or any other concerning signs or symptoms. I hope you feel better soon. Please follow up with your primary care provider within a week if your symptoms continue. If you do not have a primary care provider please contact the [facility] Resource line at [phone]. They will ask some questions about your medical history and help you get set up with a provider in the community. Prescriptions: No Action Eliquis DVT-PE Treat 30D Start 5 mg (74 tabs) tablets,dose pack See Rx Instructions PO PER PKG DIR Qty: 74 0RF Rx Instructions: PO PER PKG DIR. Take 2 tablets by mouth twice daily for 7 days followed by 5 mg twice daily. Do not stop this medication. escitalopram oxalate 5 mg tablet 5 mg PO DAILY benazepril 20 mg tablet 20 mg PO DAILY clobetasol 0.05 % lotion topical celecoxib [Celebrex] 200 MG capsule 200 mg PO QDAY Qty: 0 loratadine [Claritin] 10 MG tablet 10 mg PO PRN Qty: 0 Patient Comments: no longer taking benazepril 10 MG tablet 10 mg PO QDAY Qty: 0 levothyroxine [Synthroid] 25 MCG tablet 25 mcg PO QAM Qty: 0 ASPIRIN (Aspir-Low) 81 mg PO QDAY Qty: 0 VITAMIN D (Vitamin D3) 4,000 PO QDAY Qty: 0 fexofenadine [Gabrielle Allergy] 180 mg Tablet 180 mg PO Q24H Referrals: Alyssa Lewis PA-C [Primary Care Provider] - Stand Alone Forms: Patient Portal/API ED Sign-out <Katelin Cortez DO - Last Filed: 08/11/23 07:19> Cosign ED Attending Fer Attestation: I was available for consultation. I only read the EKG
[2023-08-10 12:56] VITALS: BP 143/77; PULSE 69; RESP 16; O2SAT 94
== END 2023-08-10 12:56 | disposition home or self-care (01) ==
PROVIDERS: Emergency Provider Physician Assistant Medical; Family Provider Physician Assistant; PCP Physician Assistant
DX: M25.511 Pain in right shoulder (principal); R07.9 Chest pain, unspecified; Z79.899 Other long term (current) drug therapy
CPT/HCPCS: 93005; 93010; 99281; 99283